=== PATIENT | female | born 1975 | race Caucasian/White ===

== ENCOUNTER 2024-11-27 09:21 | Emergency (ER) | payer OTHER, SELFPAY ==
--- NOTE | ~2024-11-27 | XR_ITS ---
EXAMINATION: XR wrist RT min 3V DATE: 11/27/2024 09:49 INDICATION: Right wrist pain. TECHNIQUE: 4 views of right wrist were obtained. COMPARISON: None. FINDINGS: Alignment is normal. No fracture. Joint spaces are normal. IMPRESSION: 1. Normal right wrist. Reviewed, dictated and finalized at location B. USEMENT MACHINE MECHANIC IMPRESSION: 1. Normal right wrist.
[2024-11-27 09:30] VITALS: BP 110/64; PULSE 72; RESP 20; TEMP 37.1; O2SAT 100
--- NOTE | 2024-11-27 09:31 | ED_ITS ---
HPI - Extremity Problem General Chief complaint: Extremity Problem,Nontraumatic Stated complaint: right wrist pain Time Seen by Provider: 11/27/24 09:39 Source: patient, RN notes reviewed and old records reviewed Mode of arrival: ambulatory Limitations: no limitations History of Present Illness HPI Narrative: 49 year old female who presents to express care with complaints of pain to her right wrist region radiating into thumb area with feelings of swelling radial aspect of her right wrist. Patient denies any known injury to her right wrist, states that she does work out regularly 6 days a week and does not know of anything she did to cause injury. Patient reports that she has been taking Ibuprofen for her discomfort, increased pain with movement reported.Patient is right hand dominant. MD Complaint: extremity pain (right wrist) and extremity swelling Onset (ago): day(s) (day 2 of symptoms) Location: right and upper extremity (wrist) Severity scale (1-10): 3 Quality: aching Exacerbating factors: other (movement of wrist) Related Data Home Medications ?Medication ?Instructions ?Recorded ?Confirmed ?Last Taken ?Type multivitamin 1 tablet PO DAILY 12/24/20 04/14/23 Unknown History ubidecarenone-omega 3-vit E 25 1 cap PO DAILY 01/13/22 04/14/23 Unknown History mg-150 (90-60) mg-200 unit capsule (Co L-31-Mhpskun E-Fish Oil) lactobacillus combination no.9 4 4,000 mmu cells PO DAILY 04/14/23 04/14/23 Unknown History billion cell capsule (Adult 50 Plus Probiotic) progesterone micronized 100 mg 100 mg PO QAM 04/14/23 04/14/23 Unknown History capsule Allergies Allergy/AdvReac Type Severity Reaction Status Date / Time No Known Allergies Allergy Verified 11/27/24 09:37 Review of Systems Review of Systems: CONSTITUTIONAL: Denies fever, chills, or sweats. EYES: Denies visual changes, redness, or discharge. ENT: Denies rhinorrhea, congestion, sore throat, or otalgia. CARDIOVASCULAR: Denies chest pain, palpitations, or edema. RESPIRATORY: Denies cough or dyspnea. GASTROINTESTINAL: Denies abdominal pain, nausea, vomiting, or diarrhea. GENITOURINARY: Denies dysuria or hematuria. SKIN: Denies rash or itching. MUSCULOSKELETAL: Denies back pain,right wrist pain no known injury pain with movement, or myalgia. NEUROLOGIC: Denies headache, numbness, or weakness. PSYCHIATRIC: Denies anxiety or depression. All systems reviewed & are unremarkable except as noted in HPI and below PMFSH Surgical History Surgical History History of abdominoplasty H/O breast augmentation H/O: hysterectomy Social History Social History Smoking status: Former smoker Second hand tobacco smoke exposure: Yes Smoking end date: 11/07/12 Alcohol intake: current Alcohol use details: rare social Substance use type: does not use Living arrangements: with family Gender identity (if verbalized by the patient): Female Comments At time of signature, agree with nursing past medical, surgical, social and family history. There is no relevant family history pertinent to the presenting complaint Exam Narrative: GENERAL: Well-appearing, well-nourished, and in no acute distress. HEAD: Normocephalic, atraumatic. EYES: PERRLA and EOMI. ENT: Nares clear, no rhinorrhea or epistaxis. Mucous membranes moist. NECK: Supple.no lymphadenopathy CHEST: Clear to auscultation. No respiratory distress. no respiratory distress, SAO2 100% on room air HEART: Regular rate and rhythm. No murmur heard. Normal peripheral pulses. ABDOMEN: Soft, nontender, nondistended, normal active bowel sounds. EXTREMITIES: Normal range of motion. No edema. Pain to right wrist radial aspect which radiates into her thumb region. Patient has full ROM of right wrist, strong right radial pulse present, nail beds swetha briskly. SKIN: Warm, dry, no rash. NEURO: No focal deficits. Alert and oriented x3. Course Course Emergency Course: Patient is aware of diagnosis, understands and agrees to treatment plan.? Anticipatory guidance given.? Patient agrees to follow-up as directed and is aware of reasons to seek care at the emergency department. Portions of this record may have been created with voice recognition software Level of Care: Express Care Visit Vital Signs Vital signs: Vital Signs Temperature 37.1 C 11/27/24 09:30 Pulse Rate 72 11/27/24 09:30 Respiratory Rate 20 11/27/24 09:30 Blood Pressure 110/64 11/27/24 09:30 Pulse Oximetry 100 11/27/24 09:30 Oxygen Delivery Room Air 11/27/24 09:30 Temperature 37.1 C 11/27/24 09:30 Pulse Rate 72 11/27/24 09:30 Respiratory Rate 20 11/27/24 09:30 Blood Pressure 110/64 11/27/24 09:30 Pulse Oximetry 100 11/27/24 09:30 Oxygen Delivery Room Air 11/27/24 09:30 Reviewed MDM - Extremity (Nontraumatic) Differential Diagnosis Differential diagnosis: Likely other (strain of right wrist, tendonitis right wrist, pain right wrist) Medical Records Attestation: I reviewed the patient's medical records. Imaging Data Attestation: I personally reviewed and interpreted this imaging study as follows: My impression: normal right wrist Radiologist's impression: [place] [address] [place] [address] XRay Report Signed Patient: Hyacinth Jim : 1975 MR#: [id number] Age: 49 Acct:[id number] Loc: [facility] ADM Date: 11/27/24Attending Dr: Ordering Physician: Bia Bates APRN Date of Service: 11/27/24 Procedure(s): XR wrist RT min 3V Accession Number(s): [id number] cc: Jewel, Dionicio TIJERINA; Bia Bates APRN~ EXAMINATION: XR wrist RT min 3V DATE: 11/27/2024 09:49 INDICATION: Right wrist pain. TECHNIQUE: 4 views of right wrist were obtained. COMPARISON: None. FINDINGS: Alignment is normal. No fracture. Joint spaces are normal. IMPRESSION: 1. Normal right wrist. Reviewed, dictated and finalized at location B. BOILER Please be advised this is a medical document. It is intended for jwxp-xr-adgy communication. It is written in medical language and may contain unfamiliar abbreviations or verbiage. Medical documents are intended to carry relevant information, facts as evident, and the clinical opinion of the practitioner at the time of the encounter. This report may have been done utilizing a voice recognition system. Attempts have been made to correct errors. However, there may be uncorrected grammatical, spelling, and recognition errors present. The file time of this note does not necessarily represent the time of service. Dictated By: Segundo Marti MD 11/27/24 0954 Signed By: <Electronically signed by Segundo Marti MD in OV> Critical Care Time Critical Care Time Critical Care Time: No Discharge Plan Discharge Clinical Impression: Right wrist tendonitis Patient Disposition: Home, Self-Care Condition: Stable Instructions: Antibiotic Form, Arthralgia (ED), Tendinitis (ED) Additional Instructions: Elastic wrap or orthopedic splint as directed for comfort for the next 5-7 days Tylenol for lesser pain Ibuprofen regularly for the next 2-3 days for the inflammation Prednisone taper take as prescribed Follow-up with orthopedic surgeon or hand surgeon if further complaints Follow-up with PCP if further problems or concerns Ice to the area 20-30 minutes 4-6 times a day Elevate above heart If your symptoms persist, change or worsen significantly before you can contact your personal physician then please, without delay, go to the emergency department for further evaluation. Follow-up with PCP in 7-10 days or sooner if needed Patient Language: Hungarian Prescriptions: New prednisone 10 mg tablet 10 mg PO DIRECTED Qty: 21 0RF Rx Instructions: see taper instructions 6 tabs day 1, 5 tabs day 2, 4 tabs day 3, 3 tabs day 4, 2 tabs day 5, 1 tab day 6 No Action multivitamin Tablet 1 tablet PO DAILY Co Z-97-Tinqicp E-Fish Oil 25-150-200 mg-mg-unit capsule 1 cap PO DAILY Adult 50 Plus Probiotic 4 billion cell capsule 4,000 mmu cells PO DAILY progesterone micronized 100 mg capsule 100 mg PO QAM Rx Instructions: off 7 days; repeat cycle Follow-up/Referrals: Jewel,PASTOR Palomares [Primary Care Provider] - Time of Disposition: 10:11 Quality Abiola Coma Scale Eyes: Open Verbal: Oriented and Alert Motor: Follows Commands Abiola Coma Total Score: 15
--- OUTSIDE RECORDS SUMMARY | 2024-11-29 16:46 | XMS_ITS | Clinical Summary ---
Author Organization [facility] [address] Address [address] [place] [address] Care Team Providers Care Topographic Computator Name Role Phone Dionicio Holloway Primary Care Provider [phone] Allergies No known active allergies Medications multivitamin capsuleIndicati ons:stop 5 days before surgery Take 1 capsule by mouth daily Active fish oil-dha-epa 1,200-144-216 mg capsuleIndicati ons:stop 5 days before surgery Take 2 capsules by mouth daily. Active ibuprofen (ADVIL,MOTRIN) 600 mg tabletIndicatio ns:Abnormal menstrual periods,Dysmeno rrhea,Pelvic pain Take 1 tablet (600 mg total) by mouth every 6 (six) hours as needed for pain. 40 tablet 8 Active Additional Information Patient not taking.Reported on 05/21/2021 magnesium gluconate 200 mg tabletIndicatio ns:hypomagnesem ia 1 tablet (200 mg total) Active cholecalciferol (VITAMIN D-3) 2000 unit capsule 1 capsule (2,000 Units total) Active progesterone (PROMETRIUM) 100 mg capsule Take 1 capsule (100 mg total) by mouth daily 30 capsule 11 3 Active Active Problems Problem Noted Date Diagnosed Date Encounter for screening colonoscopy 02/26/2022 Overview (02/26/2022): Added automatically from request for surgery [id number] Tobacco dependence 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 Overview (02/09/2017): TOBACCO USE DISORD-UNSP Irritable bowel 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 Overview (02/09/2017): Irritable bowel disease Hyperlipidemia 03/23/2014 Overview (02/12/2017): HYPERLIPIDEMIA NEC/NOS Acne 06/27/2013 Overview (02/09/2017): Acne Encounters Date Type Department Care Team Description 10/24/2024 8:31 AM LAW OFFICE ASSISTANT - 10/24/2024 11:59 PM LAW OFFICE ASSISTANT Hospital Encounter [facility] [address] [place] [id number] Screening mammogram, encounter for Discharge Disposition: Discharge to home or self care from Last 3 Months Immunizations Name Administration Dates Next Due Tdap 10/05/2010,06/28/2008 Surgical History Surgery Date Site/Laterality Comments OTHER SURGICAL HISTORY 11/07/2002 - 11/06/2003 contraception: Bilateral tubal ligation OTHER SURGICAL HISTORY 11/07/1981 - 11/06/1982 otitis media: tubes OTHER SURGICAL HISTORY 11/07/1994 - 11/06/1995 : 14 hr labor OTHER SURGICAL HISTORY 11/07/1998 - 11/06/1999 : 12 hr labor TUBAL LIGATION 11/07/2003 - 11/06/2004 Bilateral tubal ligation AUGMENTATION MAMMOPLASTY 11/07/2010 - 11/06/2011 breast augmentation LAPAROSCOPIC TOTAL HYSTERECTOMY 04/26/2018 [facility], bilateral salpingectomy HYSTERECTOMY AUGMENTATION MAMMAPLASTY COLONOSCOPY 06/18/2022 ABDOMINAL SURGERY tissue removal Medical History Medical History Date Comments Hx Other Medical contraception Otitis media otitis media Hx Other Medical 1994 ; Outc ome: 39 week 7 lb(s) 2 oz Male Hx Other Medical 1998 ; Outc ome: 39 week 8 lb(s) 15 oz Female Hx Other Medical 2010 Breast Augmenta tion - silicone GERD (gastroesophageal reflux disease) Gastritis Esophagitis Heavy menstrual period Painful Family History Medical History Relation Name Comments Heart disease Father Heart disease; Hyperlipidemia Father Hyperlipidemi a; /Hyperlipidemia; Hypertension Father Hypertension; Other Father Alive and well; Hypertension Maternal Grandfather Hyperte nsion; Stroke Maternal Grandfather Stroke; Ovarian cancer Maternal Grandmother Cance r, ovarian; Osteoporosis Mother Osteoporosis; Other Mother Alive and well; Coronary artery disease Other 1 Fami ly history of Coronary artery disease; Heart disease Other 2 Family history of heart disease; Stroke Other 3 Family history of Stroke; Ovarian cancer Other 4 Family histor y of Cancer -ovarian; Ovarian cancer Other 5 Cancer, ovari an; Cause of : Cancer, ovarian Breast cancer Other 6 Mat. grt. aunt Cancer, g[address]; Other Other 7 Cousin BRCA positive; Breast cancer Other 8 2nd cousin Coronary artery disease Paternal Grandfather Coronary artery disease; Heart disease Paternal Grandfather Heart disease; Hyperlipidemia Paternal Grandfather Hyper lipidemia; Other Sister Complete Hyst d ue to benign uterine mass; Relation Name Status Comments Father Alive Maternal Grandfather Alive Maternal Grandmother Mother Alive Other 1 Other 2 Other 3 Other 4 Other 5 Other 6 Mat. grt. aunt Other 7 Cousin Other 8 2nd cousin Alive Paternal Grandfather Alive Sister Social History Tobacco Use Types Packs/Day Years Used Date Smoking Tobacco: Former Cigarettes Q uit: 2016 Smokeless Tobacco: Never Tobacco Cessation:Counseling Given: Not Answered Alcohol Use Standard Drinks/Week Comments No 0 (1 standard drink = 0.6 oz pur e alcohol) Humiliation, Afraid, Rape, and Kick questionnair e Answer Date Recorded Within the last year, have y ou been afraid of your partner or ex-partner? No 08/08/2023 Within the last year, have y ou been humiliated or emotionally abused in other ways by your partner or ex-partner? No Within the last year, have y ou been kicked, hit, slapped, or otherwise physically hurt by your partner or ex-partner? No 08/08/2023 Within the last year, have y ou been raped or forced to have any kind of sexual activity by your partner or ex-partner? No 08/08/2023 PHQ-2 Answer Date Recorded PHQ-2 Total Score (If total score is 3 or more points, staff should administer the PHQ-9) 0 08/14/2024 Personal Safety Answer Date Recorded Have you ever been in or are you currently in a harmful physical or emotional relationship or is someone making you feel afraid or unsafe? Denies 05/30/2023 Comments No Sex and Gender Information Value Date Recorded Sex Assigned at Not on file Legal Sex Female 8:49 AM LAW OFFICE ASSISTANT Gender Identity Not on file Sexual Orientation Not on file Obstetrics History Para Term AB IAB SAB Ectopic Multiple Livin g Live Births 2 2 2 2 2 Date Outcome GA Total Labor Labor/2nd/3rd Weight Sex Type Anes PTL Wendy A1 A5 Name Clin Term F Vag-S pont Living Term M Vag-S pont Living Last Filed Vital Signs Vital Sign Reading Time Taken Comments Blood Pressure 120/82 08/14/2024 1:47 PM CDT Pulse 74 05/30/2023 11:10 AM CDT Temperature 37.2 ??C (98.9 ??F) 05/30/2023 11:10 AM C DT Respiratory Rate 16 05/30/2023 11:10 AM CDT Oxygen Saturation 100% 05/30/2023 11:10 AM CDT Inhaled Oxygen Concentration - - Weight 73 kg (161 lb) 08/14/2024 1:47 PM CDT Height 160 cm (5' 3 ) 08/14/2024 1:47 PM CDT Body Mass Index 28.52 08/14/2024 1:47 PM CDT Plan of Treatment Health Maintenance Due Date Last Done Comments Hepatitis C Screening 1975 Hepatitis B Screening 1994 DTaP/Tdap/Td Vaccine (3 - Td or Tdap) 10/05/2020 10/05/2010, 06/28/2008 Covid-19 Vaccine ( season) 2024 09/17/2021, 08/27/2021 Influenza Vaccine (#1) 2024 Depression Screening 08/14/2025 08/14/2024, 08/08/2023, 05/24/2022, Additional history exists Regular Well Visit/Exam 18-64 08/14/2025 08/14/2024, 08/08/2023, 05/24/2022, Additional history exists Breast Cancer Screening-Mammogram 10/24/2025 10/24/2024, 09/24/2023, 08/28/2022, Additional history exists Colon Cancer Screening-Colonoscopy 06/18/2032 06/18/2022 Cervical Cancer Screening Discontinued 05/24/2022, Pneumococcal vaccine <65 Aged Out No longer eligible based on patient's age to complete this topic Procedures Procedure Name Priority Date/Time Associated Diagnosis Comments SCREENING MAMMOGRAM BILATERAL W HENRY W IMPLANTS Schedule Routine, Read Routine (OP Routine) 10/24/2024 8:50 AM LAW OFFICE ASSISTANT Screening mammogram, encounter for COLONOSCOPY 06/18/2022 7:14 AM CDT PAP AND HIGH RISK HPV, REFLEX TO GENOTYPING Routine 05/24/2022 4:24 PM CDT Well woman exam from Last 3 Months or Most Recently Relevant to Health Maintenance Results * Screening Mammogram Bilateral W Henry W Implants (10/24/2024 8:50 AM LAW OFFICE ASSISTANT) Anatomical Region Laterality Modality Breast Bilateral Mammography 10/24/2024 12:0 5 PM LAW OFFICE ASSISTANT Impressions 10/24/2024 12:05 PM LAW OFFICE ASSISTANT There is no mammographic evidence of malignancy. A 1 year screening mammogram is recommended. BI-RADS: 1 - Negative. The patient has been or will be contacted. The patient will be entered into a reminder system with a target due date of 1 year for her next mammogram. Electronically signed by: Mary Rossi M.D. Narrative 10/24/2024 12:05 PM LAW OFFICE ASSISTANT EXAMINATION: SCREENING MAMMOGRAM BILATERAL W HENRY W IMPLANTS ORDERING HEALTHCARE PROVIDER: SELF SCREENING MAMMOGRAM HISTORY: Routine screening mammography. COMPARISON: ??09/24/2023, 08/28/2022, 08/26/2021, 08/23/2020 TECHNIQUE: CC and MLO views of the bilateral breasts were obtained with implant in view and implant displaced view with digital technique using breast tomosynthesis with C view. Computer aided detection was utilized. FINDINGS: DENSITY: There are scattered areas of fibroglandular density. BREASTS: There are bilateral retroglandular implants. ??There are no suspicious masses, suspicious calcifications, or other suspicious findings in either breast. There has been no suspicious interval change. us Self Screening Mammogram IMG MAMMO PROCEDURES Fi nal Result * COLONOSCOPY (06/18/2022 7:14 AM CDT) Anatomical Region Laterality Modality Other Narrative Procedure Note Nessa Wilkins MD - 06/18/2022 7:14 AM CDT [facility] Patient Name: Hyacinth Louis Procedure Date: 06/18/2022 7:14 AM Date of : 1975 Admit Type: Outpatient Age: 46 Gender: Female Attending MD: Nessa Wilkins M.D. Room: [facility] ENDOSCOPY ROOM 1 Note Status: Finalized Patient Profile: This is a 46 year old female. No family history of colon cancer. Screening. Procedure: Colonoscopy Indications: Screening for colorectal malignant neoplasm, Thisis the patient's first colonoscopy Referring MD: Julio Edouard DO Providers: Nessa Wilkins M.D. Impression: - Overall unremarkable colonoscopy - One 5 mm polyp in the descending colon, removedwith a jumbo cold forceps. Resected and retrieved. - Internal hemorrhoids. Recommendation: - Await pathology results. - Repeat colonoscopy in 5-8 years for screening purposes. - Continue present medications. Medicines: Monitored Anesthesia Care Complications: No immediate complications. Estimated Blood Loss: Estimated blood loss: none. Procedure: Pre-Anesthesia Assessment: - Prior to the procedure, a History and Physicalwas performed, and patient medications and allergieswere reviewed. The patient's tolerance of previous anesthesia was also reviewed. The risks andbenefits of the procedure and the sedation options and risks were discussed with the patient. All questions were answered, and informed consent was obtained. Prior Anticoagulants: The patient has taken noanticoagulant or antiplatelet agents. ASA Grade Assessment: II -A patient with mild systemic disease. After reviewing the risks and benefits, the patient was deemed in satisfactory condition to undergo the procedure. The benefits, risks and alternatives of theprocedure and sedation were discussed and informed consentwas obtained. All questions were answered. Please referto the signed informed consent document in the medical record. The bowel preparation used was Miralax via split dose instruction. The bowel preparation usedwas bisacodyl tablets via split dose instruction. The scope was passed under direct vision. The Pediatric Colonoscope PCF-H190L [id number] was introducedthrough the anus and advanced to the the cecum, identifiedby appendiceal orifice and ileocecal valve. Thequality of the bowel preparation was good. Bowel prep was administered using a split dose. Findings: The perianal and digital rectal examinations were normal. The cecum appeared normal. The colon (entire examined portion) appeared normal overall. One small 5 mm polyp was found in the descending colon. The polyp was flat. The polyp was removed with a jumbo cold forceps. Resection and retrieval were complete. Internal hemorrhoids were found during retroflexion. The hemorrhoids were small. Electronically signed by Nessa Wilkins M.D. Nessa Wilkins M.D. 06/18/2022 8:50:18 AM Number of Addenda: 0 Note Initiated On: 06/18/2022 7:14 AM Procedure Code(s): --- Professional --- 78486, Colonoscopy, flexible; with biopsy, single or multiple Diagnosis Code(s): --- Professional --- Z12.11, Encounter for screening for malignant neoplasm of colon K64.8, Other hemorrhoids D12.4, Benign neoplasm of descending colon CPT copyright 2020 [employer]. All rights reserved. The codes documented in this report are preliminary and upon civil engineering assistant reviewmay be revised to meet current compliance requirements. Recognized by the [place] for promoting quality in endoscopy Nessa Wilkins MD ENDOSCOPY PROCEDURES Final Result * Pap and High Risk HPV, reflex to Genotyping (05/24/2022 4:24 PM CDT) Clinical indication Comment [facility] - 01 Comment:NEGATIVE FOR INTRAEP ITHELIAL LESION OR MALIGNANCY. Specimen adequacy: Comment [facility] - 01 Comment:Satisfactory for anthony luation. No endocervical component is identified. Clinician provided ICD10 Comment [facility] - 01 Comment:Z01.419 Performed by Comment [facility] - 01 Comment:Karthik Vaughan totechnologist ([facility]) . . [facility] - 01 Note: Comment [facility] - 01 Comment: The Pap smear is a screening test designed to aid in the detection of premalignant and malignant conditions of the uterine cervix. ??It is not a diagnostic procedure and should not be used as the sole means of detecting cervical cancer. ??Both false-positive and false-negative reports do occur. Test methodology CANCELED [facility] - Comment: The Thin Prep(R) Director [place] was unable to read this specimen. ??Therefore a manual review was performed. Result canceled by the ancillary. HPV Aptima Negative Negative [facility] 02 Comment: This nucleic acid amplification test detects fourteen high-risk HPV types (16,18,31,33,35,39,45,51,52,56,58,59,66,68) without differentiation. Thin prep 05/24/2022 4:24 PM CDT 05/25/2022 Narrative [facility] - 05/27/2022 10:11 AM CDT Performed at: ??01 - [facility] [address] ??[id number] [place]: Tona Parker MD, Phone: ??[phone] Performed at: ??02 - [facility] [address] ??[id number] [place]oker: Tona Parker MD, Phone: ??[phone] Specimen Comment: No. of containers..01 ThinPrep Vial us Shoshana Peterson [facility] [facility] LAB CYTOLOGY ORDERABLES E dited Result - Final [facility] - 01 [facility] 02 from Last 3 Months or Most Recently Relevant to Health Maintenance Insurance [facility] CHOICE PLUS Advance Directives For more information, please contact: [phone] * Full Code (Latest Code Status on File) Date Activated Date Inactivated Comments 06/18/2022 7:37 AM 06/18/2022 1:37 PM * Full Code Date Activated Date Inactivated Comments 06/18/2022 7:37 AM 06/18/2022 7:37 AM * Full Code Date Activated Date Inactivated Comments 04/26/2018 12:57 PM 04/27/2018 5:40 PM Care Teams Topographic Computator Relationship Specialty Start Date End Date Dionicio Holloway PA [address] [place] [address] PCP - General Family Practice 09/03/24
--- OUTSIDE RECORDS SUMMARY | 2024-11-29 16:46 | XMS_ITS | Encounter Summary ---
Author Organization [facility] Healthcare Address [address] [place] [address] Care Team Providers Care Telesales Professional Name Role Phone Julio Edouard DO Primary Care Provider [phone] Dionicio Holloway Primary Care Provider Reason for Visit * Reason Onset Date Comments Scheduling Appointments 08/25/2021 confirmi ng mamm appt- no answer Encounter Details Date Type Department Care Team ([facility] st Contact Info) Description 08/25/2021 Telephone [facility] [address] [place] [address] Julianna Mcduffie, Scheduling Appointments (confirming mamm appt- no answer) Social History Tobacco Use Types Packs/Day Years Used Date Smoking Tobacco: Former Cigarettes Q uit: 2016 Smokeless Tobacco: Never Alcohol Use Standard Drinks/Week Comments No 0 (1 standard drink = 0.6 oz pur e alcohol) PHQ-2 Answer Date Recorded PHQ-2 Total Score (If total score is 3 or more points, staff should administer the PHQ-9) 0 05/21/2021 Comments No Sex and Gender Information Value Date Recorded Sex Assigned at Not on file Legal Sex Female 8:49 AM COUNSEL Gender Identity Not on file Sexual Orientation Not on file documented as of this encounter Plan of Treatment Not on file documented as of this encounter Visit Diagnoses Not on filedocumented in this encounter Care Teams Telesales Professional Relationship Specialty Start Date End Date Julio Edouard DO PCP - General 07/21/17 09/02/24 Dionicio Holloway PA [address] [place] [address] PCP - General Family Practice 09/03/24 documented as of this encounter
--- OUTSIDE RECORDS SUMMARY | 2024-11-29 16:46 | XMS_ITS | Referral Summary ---
Author Organization [facility] Medical Office Building B Address [address] [place] [address] Care Team Providers Care Sas Sql Developer Name Role Phone Dionicio Holloway Primary Care Provider [phone] Encounters Date Type Department Care Team Description 10/24/2024 8:31 AM EXPERIMENTAL OUTBOARD MOTORS MECHANIC - 10/24/2024 11:59 PM EXPERIMENTAL OUTBOARD MOTORS MECHANIC Hospital Encounter [facility] [address] [place] [address] Screening mammogram, encounter for Discharge Disposition: Discharge to home or self care from Last 3 Months Allergies No known active allergies Medications multivitamin [...] (02/26/2022): Added automatically from request for surgery [id number] Tobacco dependence 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 Overview (02/09/2017): TOBACCO USE DISORD-UNSP Irritable bowel 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 Overview (02/09/2017): Irritable bowel disease Hyperlipidemia 03/23/2014 Overview (02/12/2017): HYPERLIPIDEMIA NEC/NOS Acne 06/27/2013 Overview (02/09/2017): Acne Immunizations Name Administration Dates Next Due Tdap 10/05/2010,06/28/2008 Social History Tobacco Use Types Packs/Day Years [...] on file Legal Sex Female 8:49 AM EXPERIMENTAL OUTBOARD MOTORS MECHANIC Gender Identity Not on file Sexual Orientation Not on file Last Filed Vital Signs Vital Sign Reading [...] 08/14/2024 1:47 PM CDT Plan of Treatment Not on file Procedures Procedure Name Priority Date/Time Associated Diagnosis Comments SCREENING MAMMOGRAM BILATERAL W HENRY W IMPLANTS Schedule Routine, Read Routine (OP Routine) 10/24/2024 8:50 AM EXPERIMENTAL OUTBOARD MOTORS MECHANIC Screening mammogram, encounter for COLONOSCOPY 06/18/2022 7:14 AM CDT PAP AND HIGH RISK HPV, REFLEX TO GENOTYPING Routine 05/24/2022 4:24 PM CDT Well woman exam from Last 3 Months or Most Recently Relevant to Health Maintenance Results * Screening Mammogram Bilateral W Henry W Implants (10/24/2024 8:50 AM EXPERIMENTAL OUTBOARD MOTORS MECHANIC) Anatomical Region Laterality Modality Breast Bilateral Mammography 10/24/2024 12:0 5 PM EXPERIMENTAL OUTBOARD MOTORS MECHANIC Impressions 10/24/2024 12:05 PM EXPERIMENTAL OUTBOARD MOTORS MECHANIC There is no mammographic evidence of malignancy. A 1 year screening mammogram is recommended. BI-RADS: 1 - Negative. The patient has been or will be contacted. The patient will be entered into a reminder system with a target due date of 1 year for her next mammogram. Electronically signed by: Mary Rossi M.D. Narrative 10/24/2024 12:05 PM EXPERIMENTAL OUTBOARD MOTORS MECHANIC EXAMINATION: SCREENING MAMMOGRAM BILATERAL W HENRY W [...] Wilkins MD - 06/18/2022 7:14 AM CDT [facility] Patient Name: Hyacinth Louis Procedure Date: 06/18/2022 7:14 AM Date of : 1975 Admit Type: Outpatient Age: 46 Gender: Female Attending MD: Nessa Wilkins M.D. Room: [facility] ENDOSCOPY ROOM 1 Note Status: Finalized Patient [...] under direct vision. The Pediatric Colonoscope [id number]-H190L [id number] was introducedthrough the anus and advanced to [...] 7:14 AM Procedure Code(s): --- Professional --- 61106, Colonoscopy, flexible; with biopsy, single or multiple Diagnosis Code(s): --- Professional --- Z12.11, Encounter for screening for malignant neoplasm of colon K64.8, Other hemorrhoids D12.4, Benign neoplasm of descending colon CPT copyright 2020 [employer]. All rights reserved. The codes documented in this report are preliminary and upon inpatient coder reviewmay be revised to meet current compliance requirements. Recognized by the [employer] [employer] for promoting quality [...] Comment:Z01.419 Performed by Comment [facility] - 01 Comment:Georgina Wood, totechnologist (ASC) . . [facility] - 01 Note: Comment [...] do occur. Test methodology CANCELED [facility] - 01 Comment: The Micrima Prep(R) Hand Painter was unable to read this specimen. ??Therefore a manual review was performed. Result canceled by the ancillary. HPV Aptima Negative Negative [facility] 02 Comment: This nucleic acid amplification test detects fourteen high-risk HPV types (16,18,31,33,35,39,45,51,52,56,58,59,66,68) without differentiation. Thin prep 05/24/2022 4:24 PM CDT 05/25/2022 Narrative [facility] - 05/27/2022 10:11 AM CDT Performed at: ??01 - [facility] [address] ??[id number] Healthcare Technician: Tona Parker MD, Phone: ??[phone] Performed at: ??02 - [facility] [address] ??[id number] Healthcare Technician: Tona Parker MD, Phone: ??[phone] Specimen Comment: No. of containers..01 ThinPrep Vial Shoshana Peterson WEDDING COORDINATOR LAB CYTOLOGY ORDERABLES E dited Result - Final [facility] - 01 [facility] 02 from Last 3 Months or Most Recently Relevant to Health Maintenance Insurance [facility] [employer] [facility] Advance Directives For more information, please contact: [phone] * Full Code (Latest Code Status on File) Date Activated Date Inactivated Comments 06/18/2022 7:37 AM 06/18/2022 1:37 PM * Full Code Date Activated Date Inactivated Comments 06/18/2022 7:37 AM 06/18/2022 7:37 AM * Full Code Date Activated Date Inactivated Comments 04/26/2018 12:57 PM 04/27/2018 5:40 PM Care Teams Sas Sql Developer Relationship Specialty Start Date End Date Dionicio Holloway PA [address] [place] [address] PCP - General Family Practice 09/03/24
--- OUTSIDE RECORDS SUMMARY | 2024-11-29 16:46 | XMS_ITS | Data Portability ---
Author Organization [facility] Address [address] [place] [address] Care Team Providers Care Manager Reporting Name Role Phone HARPER HOLLOWAY Primary Care Provider [phone] ANASTACIA SIERRA OTHER Assessment No assessment recorded. Plan of Treatment Reminders Order Date Submit Date Provider Last Modified By Organization Details Last Modified Time Details Appointments None recorded. Lab CBC 2023 024 KYRIE [facility], [address] [facility] [address], [address], 4 06:07:49 CMP, serum or plasma 2023 024 KYRIE [facility], [address] [facility] [address], [address], 4 06:07:48 lipid panel, serum 2023 024 KYRIE [facility], [address] [facility], [facility] [address], [address], 4 06:07:47 TSH + free T4, serum 2023 024 KYRIE [facility], [address] [facility], [facility] [address], [place], [address], 4 06:07:47 testostero ne, total, serum 2023 024 KYRIE [facility], [address] [facility], [facility] [address], [place], [address], 06:24:21 testostero ne, free + total, serum 2023 024 KYRIE [facility], [address] [place] [address] [place], [address], 4 06:07:46 Referral endocrinol ogy referral 2023 024 [email or web address] Greenberg Anp, [address] [facility], [place], [address], 10:21:28 Procedures None recorded. Surgeries None recorded. Imaging None recorded. Medication Orders None recorded. Patient TargetsNo targets recorded. Patient Instructions Encounter Date Encounter Id Patient Instructions Last Modified By Organization Details Last Modified Time 03/12/2024 [id number] A healthy lifestyle: care instructions [email or web address] Not available 03/12/2024 10:44:08 Reason for Referral Endocrinology Referral for F emale hypogonadism syndrome Referring Physician: Harper Holloway, Family Medicine, Encounter Date: 03/12/2024 Results Created Date Observation Date Name Description Value Unit Range Abnormal Flag Note LastModifiedBy Organization Detail LastModifiedTime 03/12/20 24 03/13/2024 TESTO STERO NE,FR EE AND TOTAL testosterone 104 NG/dL 4-50 above high normal Not Available [facility] & [address], [address], 03/19/2024 06:07:46 03/12/2003/18/2024 TESTO STERO NE,FR EE AND TOTAL free testosterone (direct) 1.0 pg/mL 0.0-4. 2 Not Available [facility] & [place] [id number] [place], [address], 03/19/2024 06:07:46 03/12/20 24 03/13/2024 TSH+F REE T4 TSH 2.850 uIU/m L 0.450- 4.500 Not Available [facility] & [address], [address], 03/19/2024 06:07:47 03/12/20 24 03/13/2024 TSH+F REE T4 T4,free(dire ct) 1.20 NG/dL 0.82-1 .77 Not Available [address], [address], 03/19/2024 06:07:47 03/12/20 24 03/13/2024 LIPID PANEL cholesterol, total 229 mg/dL 100-19 9 above high normal Not Available [address], [address], 03/19/2024 06:07:47 03/12/2003/13/2024 LIPID PANEL triglyceride s 99 mg/dL 0-149 Not Available [address], [address], 03/19/2024 06:07:47 03/12/20 24 03/13/2024 LIPID PANEL HDL cholesterol 60 mg/dL >39 Not Available [address], [address], 03/19/2024 06:07:47 03/12/2003/13/2024 LIPID PANEL VLDL cholesterol marlo 17 mg/dL 5-40 Not Available [address], [address], 03/19/2024 06:07:47 03/12/2003/13/2024 LIPID PANEL LDL chol calc ([facility]) 152 mg/dL 0-99 above high normal Not Available [address], [address], 03/19/2024 06:07:47 03/12/20 24 03/13/2024 COMP. METAB OLIC PANEL (14) glucose 78 mg/dL 70-99 Not Available [address], [address], 03/19/2024 06:07:48 03/12/20 24 03/13/2024 COMP. METAB OLIC PANEL (14) BUN 19 mg/dL 6-24 Not Available [address], [address], 03/19/2024 06:07:48 03/12/20 24 03/13/2024 COMP. METAB OLIC PANEL (14) creatinine 0.77 mg/dL 0.57-1 .00 Not Available [address], [address], 03/19/2024 06:07:48 03/12/20 24 03/13/2024 COMP. METAB OLIC PANEL (14) eGFR 96 mL/mi n/1.7 3 >59 Not Available [address], [address], 03/19/2024 06:07:48 03/12/20 24 03/13/2024 COMP. METAB OLIC PANEL (14) BUN/creatini ne ratio 25 9-23 above high normal Not Available [address], [address], 03/19/2024 06:07:48 03/12/20 24 03/13/2024 COMP. METAB OLIC PANEL (14) sodium 142 mmol/ L 134-14 4 Not Available [address], [address], 03/19/2024 06:07:48 03/12/20 24 03/13/2024 COMP. METAB OLIC PANEL (14) potassium 4.6 mmol/ L 3.5-5. 2 Not Available [address], [address], 03/19/2024 06:07:48 03/12/20 24 03/13/2024 COMP. METAB OLIC PANEL (14) chloride 103 mmol/ L 96-106 Not Available [address], [address], 03/19/2024 06:07:48 03/12/20 24 03/13/2024 COMP. METAB OLIC PANEL (14) carbon dioxide, total 27 mmol/ L 20-29 Not Available [address], [address], 03/19/2024 06:07:48 03/12/20 24 03/13/2024 COMP. METAB OLIC PANEL (14) calcium 9.7 mg/dL 8.7-10 .2 Not Available [address], [address], 03/19/2024 06:07:48 03/12/20 24 03/13/2024 COMP. METAB OLIC PANEL (14) protein, total 7.0 g/dL 6.0-8. 5 Not Available [address], [address], 03/19/2024 06:07:48 03/12/20 24 03/13/2024 COMP. METAB OLIC PANEL (14) albumin 4.8 g/dL 3.9-4. 9 Not Available [address], [address], 03/19/2024 06:07:48 03/12/20 24 03/13/2024 COMP. METAB OLIC PANEL (14) globulin, total 2.2 g/dL 1.5-4. 5 Not Available [address], [address], 03/19/2024 06:07:48 03/12/20 24 03/13/2024 COMP. METAB OLIC PANEL (14) A/G ratio 2.2 1.2-2. 2 Not Available [address], [address], 03/19/2024 06:07:48 03/12/20 24 03/13/2024 COMP. METAB OLIC PANEL (14) bilirubin, total 0.3 mg/dL 0.0-1. 2 Not Available [address], [address], 03/19/2024 06:07:48 03/12/20 24 03/13/2024 COMP. METAB OLIC PANEL (14) alkaline phosphatase 60 IU/L 44-121 Not Available [address], [address], 03/19/2024 06:07:48 03/12/20 24 03/13/2024 COMP. METAB OLIC PANEL (14) AST (SGOT) 23 IU/L 0-40 Not Available [address], [address], 03/19/2024 06:07:48 03/12/20 24 03/13/2024 COMP. METAB OLIC PANEL (14) ALT (SGPT) 19 IU/L 0-32 Not Available [address], [address], 03/19/2024 06:07:48 03/12/20 24 03/13/2024 CARDI OVASC ULAR REPOR T interpretati on Note Suppl ement al repor t is avail able. Not Available [address], [address], 03/19/2024 06:07:49 03/12/2003/13/2024 CARDI OVASC ULAR REPOR T pdf . Not Available [address], [address], 03/19/2024 06:07:49 03/12/20 24 03/13/2024 CBC, PLATE LET, NO DIFFE RENTI AL WBC 5.1 x10e3 /uL 3.4-10 .8 Not Available [address], [address], 03/19/2024 06:07:49 03/12/20 24 03/13/2024 CBC, PLATE LET, NO DIFFE RENTI AL RBC 4.43 x10e6 /uL 3.77-5 .28 Not Available [address], [address], 03/19/2024 06:07:49 03/12/2003/13/2024 CBC, PLATE LET, NO DIFFE RENTI AL hemoglobin 13.6 g/dL 11.1-1 5.9 Not Available [address], [address], 03/19/2024 06:07:49 03/12/20 24 03/13/2024 CBC, PLATE LET, NO DIFFE RENTI AL hematocrit 40.6 % 34.0-4 6.6 Not Available [address], [address], 03/19/2024 06:07:49 03/12/20 24 03/13/2024 CBC, PLATE LET, NO DIFFE RENTI AL MCV 92 fL 79-97 Not Available [address], [address], 03/19/2024 06:07:49 03/12/20 24 03/13/2024 CBC, PLATE LET, NO DIFFE RENTI AL MCH 30.7 pg 26.6-3 3.0 Not Available [address], [address], 03/19/2024 06:07:49 03/12/20 24 03/13/2024 CBC, PLATE LET, NO DIFFE RENTI AL MCHC 33.5 g/dL 31.5-3 5.7 Not Available [address], [address], 03/19/2024 06:07:49 03/12/20 24 03/13/2024 CBC, PLATE LET, NO DIFFE RENTI AL RDW 11.9 % 11.7-1 5.4 Not Available [address], [address], 03/19/2024 06:07:49 03/12/20 24 03/13/2024 CBC, PLATE LET, NO DIFFE RENTI AL platelets 277 x10e3 /uL 150-45 0 Not Available [address], [address], 03/19/2024 06:07:49 10/24/20 24 10/24/2024 MAMMO , scree silvana, digit al, bilat eral No observ ation record ed. [address], [address], 10/28/2024 09:00:15 11/27/19 25 11/27/2024 XR, wrist No observ ation record ed. [email or web address] Eng [address] [facility] [place], [address], 11/27/2024 14:08:08 Result Notes None recorded. Problems No Known Problems Procedures Surgical History Date Name Laterality Status Provider Name and Address Organization Details Recorded Time 11/07/19 17 hysterectomy completed HOLLIE Samuels - [facility] 03/12/2024 10:12:39 plastic excision of skin of abdominal wall completed HOLLIE Samuels - [facility] 03/12/2024 10:12:00 Imaging Results Imaging Date Name Status [facility] Details LastModified Time 10/24/2024 MAMMO, screening, digital, bilateral completed [address] [place], [address], 10/28/2024 09:00:15 11/27/2024 XR, wrist completed [email or web address] Eng [address] [facility] [place], [address], 11/27/2024 14:08:08 Procedure Notes None recorded. Medical Equipment None Reported. Allergies No known drug allergies Medications Name Sig Start Date Stop Date Status Note LastModified by Organization Details LastModified Time cefadroxil 500 mg capsule TAKE 1 CAPSULE BY MOUTH THE NIGHT BEFORE PROCEDURE THEN 1 CAPSULE TWICE DAILY active Not Available Not Available No t Available oxycodone-cristina taminophen 5 mg-325 mg tablet TAKE 1 TABLET BY MOUTH EVERY 4 HOURS NEEDED FOR PAIN active Not Available Not Available No t Available gabapentin 300 mg capsule TAKE 1 CAPSULE BY MOUTH TWICE A DAY active Not Available Not Available No t Available mupirocin 2 % topical ointment APPLY TO THE INSIDE OF THE NARES ONCE DAILY AT BEDTIME STARTING 5 DAYS PRIOR TO SURGERY active Not Available Not Available N ot Available ondansetron 4 mg disintegratin g tablet DISSOLVE 1 TABLET UNDER THE TONGUE EVERY 6 HOURS NEEDED FOR NAUSEA active Not Available Not Available No t Available diazepam 5 mg tablet TAKE 1 TAB BY MOUTH 1 HOUR PRIOR TO PROCEDURE THEN 1 TAB 3 TIMES DAILY NEEDED FOR MUSCLE PAIN active Not Available Not Available No t Available progesterone micronized 100 mg capsule TAKE 1 CAPSULE BY MOUTH EVERY DAY NIGHT active Not Available Not Available No t Available progesterone active Not Available Not Available Not Available Paxlovid 300 mg (150 mg x 2)-100 mg tablets in a dose pack TAKE 1 DOSE PACK BY MOUTH DIRECTED active Not Available Not Available No t Available Vitals Date Recorded Body weight Provider Name an d Address Organization Details Last Updated DateTime 03/12/2024 88086.48 g Lurdes Antoine MA [facility] 03/12/20 10:15:41 Date Recorded Body mass index (BMI) Body height Provider Name and Address Organization Details Last Updated DateTime 03/12/2024 27.7 kg/m2 161.93 cm HOLLIE Samuels [facility] 03/12/2024 10:17:44 Date Recorded Oxygen saturation Oxygen saturation in Arterial blood by Pulse oximetry Provider Name and Address Organization Details Last Updated DateTime 03/12/2024 98 % 98 % Lurdes Antoine MA [facility] 03/12/2024 10:17:50 Date Recorded Heart rate Provider Name an d Address Organization Details Last Updated DateTime 03/12/2024 68 /min Lurdes Antoine MA [facility] 03/12/20 10:17:53 Date Recorded Systolic blood pressure Diastolic blood pressure Provider Name and Address Organization Details Last Updated DateTime 03/12/2024 110 mm[Hg] 70 mm[Hg] Lurdes Antoine MA [facility] 03/12/2024 10:17:47 Social History Question Answer Notes LastModified by Organizat ion Details LastModified Time Tobacco Smoking Status Former Smoker Lurdes Antoine MA null, [facility] 03/12/2024 10:10:39 What Is Your Level Of Alcohol Consumption? Occasional Information not available 03/12/2024 Are You Blind Or Do You Have Difficulty Seeing? No Information not available 03/12/2024 What Is Your Level Of Caffeine Consumption? Heavy Information not available 03/12/2024 Are You Currently Employed? Yes Information not available 03/12/2024 Are You Deaf Or Do You Have Serious Difficulty Hearing? No Information not available 03/12/2024 What Type Of Diet Are You Following? 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 03/12/2024 Information not available 03/12/2024 How Many Children Do You Have? 2 Information not available 03/12/2024 What Is Your Current Pack Years? 10packyears Information not available 03/12/2024 What Is Your Relationship Status? Information not available 03/12/2024 Do You Use Your Seat Belt Or Car Seat Routinely? Yes Information not available 03/12/2024 Do You Have Smoke And Carbon Monoxide Detectors In Your Home? Yes Information not available 03/12/2024 Are You Passively Exposed To Smoke? No Information no t available 03/12/2024 How Much Tobacco Do You Smoke? No Information not available 03/12/2024 Do You Feel Stressed (tense, Restless, Nervous, Or Anxious, Or Unable To Sleep At Night)? [id number] Information not available 03/12/2024 Do You Use Any Illicit Or Recreational Drugs? No Information not available 03/12/2024 Do You Use Sunscreen Routinely? Yes Information not available 03/12/2024 Has Tobacco Cessation Counseling Been Provided? No Information not available 03/12/2024 How Many Years Have You Smoked Tobacco? 15 Information not available 03/12/2024 Do You Or Have You Ever Used Any Other Forms Of Tobacco Or Nicotine? No Information not available 03/12/2024 Sex: Female Functional Status Question Answer Note LastModified by Organization D etails LastModified Time Are you able to care for yourself? Yes Information not available 03/12/2024 What is your exercise level? Moderate Information not available 03/12/2024 Mental Status None recorded. Family History Relationship Description Onset Age of this Age Resolved Age Notes LastModified by Organization Details LastModified Time Father Heart disease [email or web address] Not available 2023 10:09:10 Mother Malignant neoplasm of urinary bladder [email or web address] Not available 2023 10:09:39 Medical History Condition Response Coronary Artery Disease N Other N High Blood Pressure N Atrial Fibrillation N Thyroid Problems N Kidney or Bladder Problems N GI Problems N Depression N COPD N Blood Clots N Skin Problems N Eating Disorder N Anemia N Heart Attack (VT) N Anxiety Disorder N Diabetes N Muscle, Joint, or Bone Problems N Arthritis N Seizures/Epilepsy N Acid Reflux (GERD) Y Cancer N Stroke N Asthma N Allergies N ADHD N Substance Abuse N High Cholesterol Y Hepatitis N Liver Disease N Schizophrenia N Headaches N Heart Failure N Osteoporosis N Gynecological HistoryNo gynecological history recorded. Obstetrics History GPAL:G 2 P 2 0 0 0 Type Value Full Term 2 Total 2 Past Encounters Encounter ID Performer Location Encounter Start Date Encounter Closed Date Diagnosis/Indication Diagnosis SNOMED-CT Code Diagnosis ICD10 Code Diagnosis Note [id number] Harper Holloway PA-C [facility] [address] [place] [address] 03/12/2024 09:58:43 03/14/2024 12:54:47 Decreased estrogen level 284126444 E28.39 Female hyp ogonadism syndrome 02029496 E28.39 Overweight 413444232 E66 .3 Health Concerns Section Related Observation LastModified by Organization Detai ls LastModified Time None Recorded Concern Status LastModified by Organization Details LastModified Time None Recorded Advance Directives Directive None Recorded Payers Encounter Date Sequence Insurance Name Policy Number Policy Fields Covered Member ID Fields Member ID Guarantor Name 03/12/2024 1 [facility] [id number] Hyacinth Hernán [id number] Hyacinth Hernán 03/12/2024 2 [place] [id number] Gamal Hernán [id number] 1 Hyacinth Jim Notes Date Note Type Note Provider Name and Address Organization Details Recorded Time 03/12/2024 text/html establishing...h as some concerns...had an insane rapid weight gain after having competed in bodybuilding..had elevated estrogen...testost erone injections helped....but now she became no estrogen and too high testosterone...hx of hysterectomy...now rec hormone replacement thru Dr Sierra...also recent surgery on loose skin had surgery Harper Holloway PA-C Attn: Accounting,[address] [facility], [place], [address], [facility] 03/12/2024 10:50:16 OBGyn Episode No OBEpisode recorded.
== END 2024-11-27 10:15 | disposition home or self-care (01) ==
PROVIDERS: Emergency Provider Registered Nurse; PCP Physician Assistant
DX: M77.8 Other enthesopathies, not elsewhere classified (principal); Z87.891 Personal history of nicotine dependence
CPT/HCPCS: 73110; 99213; G0463